=== PATIENT | female | born 1945 | race Caucasian/White ===

== ENCOUNTER 2016-06-12 16:32 | Observation (INO) | payer MEDICARE, OTHER ==
[2016-06-12] MEDS ORDERED: ASPIRIN 81 MG TABLET, CHEWABLE PO ONE (17:10)
--- NOTE | 2016-06-12 17:10 | ER Document Report ---
ED Medical Screen (RME) - General Stated Complaint: INDIGESTION/JAW PAIN Time seen by provider: 17:07 Mode of Arrival: Ambulatory Notes: 70-year-old female presents to ED for pain in the chest "indigestion" and then pain went up to the right side of her jaw. Denies any shortness of breath. States she's been very jittery. States she has a history of high blood pressure but no elevated cholesterol. No history of mother father brother sister having heart attacks. I have greeted and performed a rapid initial assessment of this patient. A comprehensive ED assessment and evaluation of the patient, analysis of test results and completion of medical decision making process will be conducted by an additional ED providers. TRAVEL OUTSIDE OF THE [place] IN LAST 30 DAYS: No - Related Data Allergies/Adverse Reactions: No Known Allergies Allergy (Verified 06/12/16 17:07) Physical Exam - Vital signs Vitals: Temp Pulse Resp BP Pulse Ox 98.1 F 65 16 155/61 H 97 06/12/16 16:55 06/12/16 16:55 06/12/16 16:55 06/12/16 16:55 06/12/16 16:55 Course - Vital Signs Vital signs: Temp Pulse Resp BP Pulse Ox 98.1 F 65 16 155/61 H 97 06/12/16 16:55 06/12/16 16:55 06/12/16 16:55 06/12/16 16:55 06/12/16 16:55
[2016-06-12 17:35] LABS: ABSOLUTE EOSINOPHILS # (AUTO) 0.1 10^3/uL (0.0-0.6); ABSOLUTE LYMPHOCYTES (AUTO) 0.9 10^3/uL (0.5-4.7); ABSOLUTE MONOCYTES (AUTO) 0.4 10^3/uL (0.1-1.4); ABSOLUTE NEUT (AUTO) 4.2 10^3/uL (1.7-8.2); BASOPHILS % (AUTO) 0.8 % (0-2); HEMOGLOBIN 13.7 g/dL (12.0-15.5); HGB HCT DIFFERENCE 0.1; LYMPHOCYTES % (AUTO) 16.4 % (13-45); MEAN CORPUSCULAR HEMOGLOBIN 30.2 pg (27.0-33.4); MEAN CORPUSCULAR HGB CONC 33.4 g/dL (32.0-36.0); MEAN CORPUSCULAR VOLUME 90 fl (80-97); MONOCYTES % (AUTO) 7.5 % (3-13); RED BLOOD COUNT 4.54 10^6/uL (3.72-5.28); RED CELL DISTRIBUTION WIDTH 13.3 % (11.5-14.0); SEGMENTED NEUTROPHILS % (AUTO) 74.3 % (42-78); WHITE BLOOD COUNT 5.6 10^3/uL (4.0-10.5)
[2016-06-12 17:49] LABS: ALANINE AMINOTRANSFERASE 24 U/L (9-52); ALBUMIN 4.1 g/dL (3.5-5.0); ALKALINE PHOSPHATASE 69 U/L (38-126); ANION GAP 9 (5-19); ASPARTATE AMINO TRANSFERASE 21 U/L (14-36); BILIRUBIN,TOTAL 0.6 mg/dL (0.2-1.3); BLOOD UREA NITROGEN 23 mg/dL (7-20); CALCIUM 9.9 mg/dL (8.4-10.2); CARBON DIOXIDE 28 mmol/L (22-30); CHLORIDE 105 mmol/L (98-107); CREATINE KINASE 38 U/L (30-135); CREATININE RESULT 0.62 mg/dL (0.52-1.25); GLUCOSE 95 mg/dL (75-110); POTASSIUM 4.2 mmol/L (3.6-5.0); SODIUM 142.1 mmol/L (137-145); TOTAL PROTEIN 7.2 g/dL (6.3-8.2)
[2016-06-12 18:01] LABS: CREATINE KINASE MB 0.39 ng/mL (<4.55)
[2016-06-12 18:02] LABS: TROPONIN I < 0.012 ng/mL
--- NOTE | 2016-06-12 18:24 | ER Document Report ---
ED Cardiac - General Chief Complaint: Chest Pressure Stated Complaint: INDIGESTION/JAW PAIN Time seen by provider: 18:24 Mode of Arrival: Ambulatory Notes: This is a pleasant 70-year-old female that presented to the emergency room after an episode of retrosternal chest discomfort radiating into the right jaw today. She states she was coming out of [place] from shopping when this occurred. She stated that the discomfort lasted approximately 30 minutes and resolved spontaneously. She denies any shortness of breath or diaphoresis at the time. She denies any history of reflux. She reports that she recently had an elevated blood pressure at her doctor's office. TRAVEL OUTSIDE OF THE [place] IN LAST 30 DAYS: No - HPI Patient complains to provider of: Chest pain Use of: denies: Alcohol, Amphetamines, Bath salts, Caffeine, Cocaine, Decongestants, Other Was the onset of pain: Sudden Is the pain a: New problem Chest pain location: Substernal Quality of pain: Dull Chest pain radiation location: Right jaw Severity now: None Severity at worst: Moderate Pain level currently: Denies Chest pain precipitating factors: Physical Exertion Cardiac risk factors: Hypertension Positive cardiac history: No Associated symptoms: denies: Diaphoresis, Shortness of breath Exacerbated by: Denies Relieved by: Nothing Similar symptoms previously: No Recently seen / treated by doctor: No - Related Data Allergies/Adverse Reactions: No Known Allergies Allergy (Verified 06/12/16 17:07) Home Medications: Current Home Medications Cetirizine HCl [Cetirizine HCl] 10 mg PO DAILYP PRN 06/12/16 [History] Cholecalciferol (Vitamin D3) [Vitamin D3] 1,000 unit PO DAILY 06/12/16 [History] Cyanocobalamin (Vitamin B-12) [Vitamin B-12] 1,000 mcg PO DAILY 06/12/16 [ History] Meloxicam [Meloxicam] 7.5 mg PO BID 06/12/16 [History] Tolterodine Tartrate [Detrol LA] 4 mg PO DAILY 06/12/16 [History] Past Medical History - General Information source: Patient - Social History Smoking Status: Never Smoker Cigarette use (# per day): No Chew tobacco use (# tins/day): No Frequency of alcohol use: None Drug Abuse: None Lives with: Family Family History: Reviewed & Not Pertinent Patient has suicidal ideation: No Patient has homicidal ideation: No - Medical History Medical History: Negative Renal/ Medical History: Denies: Hx Peritoneal Dialysis Surgical Hx: Negative Review of Systems - Review of Systems Constitutional: denies: Chills, Fever EENT: No symptoms reported Cardiovascular: No symptoms reported Respiratory: No symptoms reported Gastrointestinal: No symptoms reported Genitourinary: No symptoms reported Female Genitourinary: No symptoms reported Musculoskeletal: No symptoms reported Skin: No symptoms reported Hematologic/Lymphatic: No symptoms reported Neurological/Psychological: No symptoms reported Physical Exam - Vital signs Vitals: Temp Pulse Resp BP Pulse Ox 98.1 F 65 16 155/61 H 97 06/12/16 16:55 06/12/16 16:55 06/12/16 16:55 06/12/16 16:55 06/12/16 16:55 Notes: Physical exam: GENERAL: 70-year-old female, alert and oriented 3, no acute distress HEAD: Atraumatic, normocephalic. EYES: Pupils equal round and reactive to light, extraocular movements intact, sclera anicteric, conjunctiva are normal. ENT: TMs normal, nares patent, oropharynx clear without exudates. Moist mucous membranes. NECK: Normal range of motion, supple without lymphadenopathy or JVD. LUNGS: Breath sounds clear to auscultation bilaterally and equal. No wheezes rales or rhonchi. HEART: Regular rate and rhythm without murmurs, rubs or gallops. ABDOMEN: Soft, normoactive bowel sounds. No tenderness to palpation. No guarding, no rebound. No masses appreciated. EXTREMITIES: Normal range of motion, no pitting or edema. No clubbing or cyanosis. NEUROLOGICAL: Cranial nerves II through XII grossly intact. Normal speech, normal gait. PSYCH: Normal mood, normal affect. SKIN: Warm, Dry, normal turgor, no rashes or lesions noted. Course - Vital Signs Vital signs: Temp Pulse Resp BP Pulse Ox 98.1 F 65 20 149/109 H 100 06/12/16 16:55 06/12/16 16:55 06/12/16 21:00 06/12/16 20:01 06/12/16 21:00 - Laboratory Result Diagrams: 06/12/16 17:20 06/12/16 17:20 Laboratory results interpreted by me: 06/12/16 17:20 BUN 23 H - Diagnostic Test Radiology reviewed: Image reviewed, Reports reviewed - Wrist x-ray shows no infiltrates or effusions - EKG Interpretation by Me Rate: Normal Rhythm: NSR - EKG shows normal sinus rhythm with a left axis deviation, poor R- wave progression Discharge - Discharge Clinical Impression: chest pain Condition: Stable Disposition: HOME, SELF-CARE Admitting Provider: Hospitalist - Dr. Esquivel Unit Admitted: Telemetry
--- NOTE | 2016-06-12 18:55 | PDOC H&P ---
History of Present Illness Admission Date/PCP: 06/12/16 18:40 CARL MIN Patient complains of: chest pain History of Present Illness: AYLA RODRIGUEZ is a 70 year old female that presented to the emergency room after an episode of retrosternal chest discomfort radiating into the right jaw today. She states she was coming out of [place] [employer] from shopping when this occurred. She stated that the discomfort lasted approximately 30 minutes and resolved spontaneously. She denies any shortness of breath or diaphoresis at the time. She denies any history of reflux. She reports that she recently had an elevated blood pressure at her doctor's office. The ED patient had a normal EKG, negative cardiac enzymes She remained totally asymptomatic She was subsequently admitted for observation to telemetry unit under hospitalist service Past Medical History Medical History: None Cardiac Medical History: Reports: None Musculoskeltal Medical History: Reports: None Psychiatric Medical History: Reports: None Hematology: Reports: None Past Surgical History Past Surgical History: Reports: None Social History Smoking Status: Never Smoker Frequency of Alcohol Use: None Hx Recreational Drug Use: No - Advance Directive Resuscitation Status: Full Code Surrogate healthcare decision maker:: her Keshav Family History Parental Family History Reviewed: Yes - grandfather of an OK at age 70 Children Family History Reviewed: Yes Sibling(s) Family History Reviewed.: Yes Medication/Allergy Home Medications: Cetirizine HCl [Cetirizine HCl] 10 mg PO DAILYP PRN 06/12/16 Cholecalciferol (Vitamin D3) [Vitamin D3] 1,000 unit PO DAILY 06/12/16 Cyanocobalamin (Vitamin B-12) [Vitamin B-12] 1,000 mcg PO DAILY 06/12/16 Meloxicam [Meloxicam] 7.5 mg PO BID 06/12/16 Tolterodine Tartrate [Detrol LA] 4 mg PO DAILY 06/12/16 Allergies/Adverse Reactions: No Known Allergies Allergy (Verified 06/12/16 17:07) Review of Systems Constitutional: ABSENT: chills, fever(s), headache(s), weight gain, weight loss Eyes: ABSENT: visual disturbances Ears: ABSENT: hearing changes Cardiovascular: PRESENT: as per HPI Respiratory: ABSENT: cough, hemoptysis Gastrointestinal: ABSENT: abdominal pain, constipation, diarrhea, hematemesis, hematochezia, nausea, vomiting Genitourinary: ABSENT: dysuria, hematuria Musculoskeletal: ABSENT: joint swelling Integumentary: ABSENT: rash, wounds Neurological: ABSENT: abnormal gait, abnormal speech, confusion, dizziness, focal weakness, syncope Psychiatric: ABSENT: anxiety, depression, homidical ideation, suicidal ideation Endocrine: ABSENT: cold intolerance, heat intolerance, polydipsia, polyuria Hematologic/Lymphatic: ABSENT: easy bleeding, easy bruising Physical Exam Vital Signs: Temp Pulse Resp BP Pulse Ox 98.1 F 65 16 155/61 H 97 06/12/16 16:55 06/12/16 16:55 06/12/16 16:55 06/12/16 16:55 06/12/16 16:55 General appearance: PRESENT: no acute distress, well-developed, well-nourished Head exam: PRESENT: atraumatic, normocephalic Eye exam: PRESENT: conjunctiva pink, EOMI, PERRLA. ABSENT: scleral icterus Ear exam: PRESENT: normal external ear exam Mouth exam: PRESENT: moist, tongue midline Neck exam: ABSENT: carotid bruit, JVD, lymphadenopathy, thyromegaly Respiratory exam: PRESENT: clear to auscultation aisha. ABSENT: rales, rhonchi, wheezes Cardiovascular exam: PRESENT: RRR. ABSENT: diastolic murmur, rubs, systolic murmur Pulses: PRESENT: normal dorsalis pedis pul Vascular exam: PRESENT: normal capillary refill GI/Abdominal exam: PRESENT: normal bowel sounds, soft. ABSENT: distended, guarding, mass, organolmegaly, rebound, tenderness Rectal exam: PRESENT: deferred Extremities exam: PRESENT: full ROM. ABSENT: calf tenderness, clubbing, pedal edema Neurological exam: PRESENT: alert, awake, oriented to person, oriented to place , oriented to time, oriented to situation, CN II-XII grossly intact. ABSENT: motor sensory deficit Psychiatric exam: PRESENT: appropriate affect, normal mood. ABSENT: homicidal ideation, suicidal ideation Skin exam: PRESENT: dry, intact, warm. ABSENT: cyanosis, rash Results Laboratory Results: Laboratory WBC 5.6 10^3/uL (4.0-10.5) 06/12/16 17:20 RBC 4.54 10^6/uL (3.72-5.28) 06/12/16 17:20 Hgb 13.7 g/dL (12.0-15.5) 06/12/16 17:20 Hct 41.0 % (36.0-47.0) 06/12/16 17:20 MCV 90 fl (80-97) 06/12/16 17:20 MCH 30.2 pg (27.0-33.4) 06/12/16 17:20 MCHC 33.4 g/dL (32.0-36.0) 06/12/16 17:20 RDW 13.3 % (11.5-14.0) 06/12/16 17:20 Plt Count 210 10^3/uL (150-450) 06/12/16 17:20 Seg Neutrophils % 74.3 % (42-78) 06/12/16 17:20 Lymphocytes % 16.4 % (13-45) 06/12/16 17:20 Monocytes % 7.5 % (3-13) 06/12/16 17:20 Eosinophils % 1.0 % (0-6) 06/12/16 17:20 Basophils % 0.8 % (0-2) 06/12/16 17:20 Absolute Neutrophils 4.2 10^3/uL (1.7-8.2) 06/12/16 17:20 Absolute Lymphocytes 0.9 10^3/uL (0.5-4.7) 06/12/16 17:20 Absolute Monocytes 0.4 10^3/uL (0.1-1.4) 06/12/16 17:20 Absolute Eosinophils 0.1 10^3/uL (0.0-0.6) 06/12/16 17:20 Absolute Basophils 0.0 10^3/uL (0.0-0.2) 06/12/16 17:20 Sodium 142.1 mmol/L (137-145) 06/12/16 17:20 Potassium 4.2 mmol/L (3.6-5.0) 06/12/16 17:20 Chloride 105 mmol/L (98-107) 06/12/16 17:20 Carbon Dioxide 28 mmol/L (22-30) 06/12/16 17:20 Anion Gap 9 (5-19) 06/12/16 17:20 BUN 23 mg/dL (7-20) H 06/12/16 17:20 Creatinine 0.62 mg/dL (0.52-1.25) 06/12/16 17:20 Est GFR ( Amer) > 60 (>60) 06/12/16 17:20 Est GFR (Non-Af Amer) > 60 (>60) 06/12/16 17:20 Glucose 95 mg/dL (75-110) 06/12/16 17:20 Calcium 9.9 mg/dL (8.4-10.2) 06/12/16 17:20 Magnesium 2.0 mg/dL (1.6-2.3) 06/12/16 17:20 Total Bilirubin 0.6 mg/dL (0.2-1.3) 06/12/16 17:20 Direct Bilirubin 0.0 mg/dL (0.0-0.3) 06/12/16 17:20 AST 21 U/L (14-36) 06/12/16 17:20 ALT 24 U/L (9-52) 06/12/16 17:20 Alkaline Phosphatase 69 U/L (38-126) 06/12/16 17:20 Creatine Kinase 38 U/L (30-135) 06/12/16 17:20 CK-MB (CK-2) 0.39 ng/mL (<4.55) 06/12/16 17:20 Troponin I < 0.012 ng/mL 06/12/16 17:20 Total Protein 7.2 g/dL (6.3-8.2) 06/12/16 17:20 Albumin 4.1 g/dL (3.5-5.0) 06/12/16 17:20 Impressions: Chest X-Ray 06/12/16 17:11 IMPRESSION: NO SIGNIFICANT RADIOGRAPHIC FINDING IN THE CHEST. Assessment & Plan - Diagnosis (1) Chest pain Qualifiers: Chest pain type: unspecified Qualified Code(s): R07.9 - Chest pain, unspecified Is this a current diagnosis for this admission?: YesPlan: Patient has no significant risk factors except for the fact that she is post menopausal She is nonsmoker But she gives a fairly good history of chest pressure radiating to the neck that lasted about half an hour We will admit her to telemetry unit, monitor overnight, obtain serial EKGs and troponins ; if patient rules out in a.m. she will be referred to cardiology as an outpatient for stress testing Patient will be treated with Ecotrin 325 mg daily; Lipitor 80 mg at bedtime DVT and GI prophylaxis were ordered
[2016-06-12] MEDS ORDERED: LANSOPRAZOLE 30 MG TAB.RAP.DR PO ONE (19:15)
[2016-06-12] MEDS ORDERED: ENOXAPARIN SODIUM INJ 40 MG/0.4 ML DISP.SYRIN SUBCUT ONE (19:30)
[2016-06-12] MEDS ORDERED: ATORVASTATIN CALCIUM 80 MG TABLET PO SCH (22:00)
--- NOTE | 2016-06-13 00:05 | EKG REPORT ---
SEVERITY:- NORMAL ECG - SINUS RHYTHM : Confirmed by: Ford Vines 13-Jun-2016 00:04:11
[2016-06-13 05:39] LABS: CHOLESTEROL 164.59 mg/dL (0-200); Direct HDL 61 mg/dL (>40); TRIGLYCERIDES 98 mg/dL (<150)
[2016-06-13 05:50] LABS: DIRECT LDL 86 mg/dL (<100)
[2016-06-13] MEDS ORDERED: LANSOPRAZOLE 30 MG TAB.RAP.DR PO SCH (06:00)
[2016-06-13] MEDS ORDERED: ENOXAPARIN SODIUM INJ 40 MG/0.4 ML DISP.SYRIN SUBCUT SCH (08:00)
[2016-06-13 08:35] VITALS: BP 121/49
[2016-06-13] MEDS ORDERED: ASPIRIN 325 MG TABLET, ENT COATED PO SCH (10:00)
--- NOTE | 2016-06-13 10:29 | EKG REPORT ---
SEVERITY:- NORMAL ECG - SINUS RHYTHM : Confirmed by: Ford Vines 13-Jun-2016 10:28:06
--- NOTE | 2016-06-13 13:59 | PDOC DISCHARGE SUMMARY ---
General - Admit/Disc Date/PCP Admission Date/Primary Care Provider: 06/12/16 18:41 CARL MIN Discharge Date: 06/13/16 - Discharge Diagnosis (1) Chest pain Is this a current diagnosis for this admission?: Yes - Additional Information Resuscitation Status: Full Code Discharge Diet: As Tolerated Discharge Activity: Activity As Tolerated Home Medications: Cetirizine HCl [Cetirizine HCl] 10 mg PO DAILYP PRN 06/12/16 Cholecalciferol (Vitamin D3) [Vitamin D3] 1,000 unit PO DAILY 06/12/16 Cyanocobalamin (Vitamin B-12) [Vitamin B-12] 1,000 mcg PO DAILY 06/12/16 Meloxicam [Meloxicam] 7.5 mg PO BID 06/12/16 Tolterodine Tartrate [Detrol LA] 4 mg PO DAILY 06/12/16 History of Present Illness Patient complains of: ches pain History of Present Illness: presented to the emergency room after an episode of retrosternal chest discomfort radiating into the right jaw today. She states she was coming out of [place] from [place] when this occurred. She stated that the discomfort lasted approximately 30 minutes and resolved spontaneously. She denies any shortness of breath or diaphoresis at the time. She denies any history of reflux. She reports that she recently had an elevated blood pressure at her doctor's office. The ED patient had a normal EKG, negative cardiac enzymes She remained totally asymptomatic She was subsequently admitted for observation to telemetry unit under hospitalist service Hospital Course Hospital Course: Patient was monitered ; she did not have any arrhythmias Chest pain did not reccur The troponins remained negative and less than 0.012 serial EKG's were normal lipid profile was normal TSH was normal high and should be repeated in 1 month 06/12/16 06/13/16 06/13/16 17:20 00:26 04:41 Troponin I < 0.012 < 0.012 Triglycerides 98 Cholesterol 164.59 LDL Cholesterol Direct 86 VLDL Cholesterol 20.0 HDL Cholesterol 61 TSH 06/13/16 06/13/16 04:41 04:41 Troponin I < 0.012 Triglycerides Cholesterol LDL Cholesterol Direct VLDL Cholesterol HDL Cholesterol TSH 5.32 H Physical Exam Vital Signs: Temp Pulse Resp BP Pulse Ox 98.0 F 60 18 121/49 L 100 06/13/16 10:17 06/13/16 10:17 06/13/16 10:17 06/13/16 08:06 06/13/16 10:17 Intake & Output 06/12/16 06/13/16 06/14/16 00:59 00:59 00:59 Intake Total 420 255 Output Total 100 Balance 420 155 Weight 60.2 kg General appearance: PRESENT: no acute distress, well-developed, well-nourished Head exam: PRESENT: atraumatic, normocephalic Eye exam: PRESENT: conjunctiva pink, EOMI, PERRLA. ABSENT: scleral icterus Ear exam: PRESENT: normal external ear exam Mouth exam: PRESENT: moist, tongue midline Neck exam: ABSENT: carotid bruit, JVD, lymphadenopathy, thyromegaly Respiratory exam: PRESENT: clear to auscultation aisha. ABSENT: rales, rhonchi, wheezes Cardiovascular exam: PRESENT: RRR. ABSENT: diastolic murmur, rubs, systolic murmur Pulses: PRESENT: normal dorsalis pedis pul Vascular exam: PRESENT: normal capillary refill GI/Abdominal exam: PRESENT: normal bowel sounds, soft. ABSENT: distended, guarding, mass, organolmegaly, rebound, tenderness Rectal exam: PRESENT: deferred Extremities exam: PRESENT: full ROM. ABSENT: calf tenderness, clubbing, pedal edema Neurological exam: PRESENT: alert, awake, oriented to person, oriented to place , oriented to time, oriented to situation, CN II-XII grossly intact. ABSENT: motor sensory deficit Psychiatric exam: PRESENT: appropriate affect, normal mood. ABSENT: homicidal ideation, suicidal ideation Skin exam: PRESENT: dry, intact, warm. ABSENT: cyanosis, rash Results Laboratory Results: 06/13/16 06/13/16 04:41 04:41 Triglycerides 98 Cholesterol 164.59 LDL Cholesterol Direct 86 VLDL Cholesterol 20.0 HDL Cholesterol 61 TSH 5.32 H 06/13/16 06/13/16 00:26 04:41 Troponin I < 0.012 < 0.012 06/12/16 17:20 06/12/16 17:20 06/12/16 06/12/16 06/13/16 17:20 17:20 04:41 WBC 5.6 RBC 4.54 Hgb 13.7 Hct 41.0 MCV 90 MCH 30.2 MCHC 33.4 RDW 13.3 Plt Count 210 Seg Neutrophils % 74.3 Lymphocytes % 16.4 Monocytes % 7.5 Eosinophils % 1.0 Basophils % 0.8 Absolute Neutrophils 4.2 Absolute Lymphocytes 0.9 Absolute Monocytes 0.4 Absolute Eosinophils 0.1 Absolute Basophils 0.0 Sodium 142.1 Potassium 4.2 Chloride 105 Carbon Dioxide 28 Anion Gap 9 BUN 23 H Creatinine 0.62 Est GFR ( Amer) > 60 Est GFR (Non-Af Amer) > 60 Glucose 95 Calcium 9.9 Magnesium 2.0 Total Bilirubin 0.6 AST 21 ALT 24 Alkaline Phosphatase 69 Total Protein 7.2 Albumin 4.1 Triglycerides 98 Cholesterol 164.59 LDL Cholesterol Direct 86 VLDL Cholesterol 20.0 HDL Cholesterol 61 TSH 06/13/16 04:41 WBC RBC Hgb Hct MCV MCH MCHC RDW Plt Count Seg Neutrophils % Lymphocytes % Monocytes % Eosinophils % Basophils % Absolute Neutrophils Absolute Lymphocytes Absolute Monocytes Absolute Eosinophils Absolute Basophils Sodium Potassium Chloride Carbon Dioxide Anion Gap BUN Creatinine Est GFR ( Amer) Est GFR (Non-Af Amer) Glucose Calcium Magnesium Total Bilirubin AST ALT Alkaline Phosphatase Total Protein Albumin Triglycerides Cholesterol LDL Cholesterol Direct VLDL Cholesterol HDL Cholesterol TSH 5.32 H 06/12/16 06/12/16 06/13/16 17:20 17:20 00:26 Creatine Kinase 38 CK-MB (CK-2) 0.39 Troponin I < 0.012 < 0.012 06/13/16 04:41 Creatine Kinase CK-MB (CK-2) Troponin I < 0.012 Impressions: Chest X-Ray 06/12/16 17:11 IMPRESSION: NO SIGNIFICANT RADIOGRAPHIC FINDING IN THE CHEST. Plan Discharge Plan: patient was discharged -referred to primary care physician and cooling pipe inspector A stress test was advised in 2-4 weeks Time Spent: Less than 30 Minutes
== END 2016-06-13 10:56 | disposition home or self-care (01) ==
LOC: ER 16:32 → UNDOADMOB 18:40 → EH 18:40 → 4N 21:30
PROVIDERS: ADMIT Emergency Medicine; ATTEND Emergency Medicine
PROC: 3E023GC Introduction of Other Therapeutic Substance into Muscle, Percutaneous Approach (ICD-10-PCS; principal; 2016-06-12)
DX: R07.9 Chest pain, unspecified (principal); I10 Essential (primary) hypertension
CPT/HCPCS: 93005 ×2; 99285; 96372; 36415 ×2; 82553; 82550; 83735; 84443; 85025; 80053; 84484 ×2; 83036; 80061; 71020; 93010 ×2; G0378 ×3; A9270 ×3; J1650

== ENCOUNTER → 2016-10-23 | Outpatient (CLI) | payer MEDICARE, OTHER ==
--- NOTE | 2016-10-23 14:07 | WOMENS IMAGING REPORT ---
EXAM DESCRIPTION: 3D SCREENING MAMMO BILAT COMPLETED DATE/TIME: 10/23/2016 11:41 am REASON FOR STUDY: ROUTINE 3D Z12.31 Z12.31 ENCNTR SCREEN MAMMOGRAM FOR MALIGNANT NEOPLASM OF GALA COMPARISON: Multiple since 2012 TECHNIQUE: Standard craniocaudal and mediolateral oblique views of each breast recorded using digita l acquisition and breast tomosynthesis. LIMITATIONS: None. FINDINGS: Findings present which are benign by mammographic criteria. No suspicious masses, calcifi cations or architectural distortion. Pertinent benign findings: Bilateral benign calcifications Read with the assistance of CAD. .[facility] - R2 Cenova Version 1.3 .[facility] - R2 Cenova Version 1.3 .[facility] - R2 Cenova Version 2.4 .[facility] - R2 Cenova Version 2.4 .[facility] - R2 Photographic Equipment [employer]sembler Version 9.2 Benign mammographic findings may include one or more of the following: Smooth masses, popcorn/rim/co arse calcifications, asymmetries, post-procedure changes, and lesions with long-standing stability. IMPRESSION: BENIGN MAMMOGRAPHIC FINDINGS. BIRADS 2 BREAST DENSITY: c. The breasts are heterogeneously dense, which may obscure small masses. BIRAD: 2 BENIGN FINDING(S) RECOMMENDATION: RECOMMENDATION: ROUTINE SCREENING Please continue bilateral screening tomosynthesis in September 2017 COMMENT: The patient has been notified of the results by letter per SA requirements. Additional no tification policies are in place for contacting patient with suspicious or incomplete findings. Quality ID #[id number]: The [employer] recommends an annual screening mammogram for women aged 40 years or over. This facility utilizes a reminder system to ensure that all patients receive reminder letters, and/or direct phone calls for appointments. This includes reminders for routine scr eening mammograms, diagnostic mammograms, or other Breast Imaging Interventions when appropriate. Th is patient will be placed in the appropriate reminder system. The [employer] (ACR) has developed recommendations for screening MRI of the breast s in certain patient populations, to be used in conjunction with mammography. Breast MRI surveillanc e may be appropriate for women with more than 20% lifetime risk of developing breast cancer as deter mined by genetic testing, significant family history of the disease, or history of mantle radiation f or Hodgkins Disease. ACR Practice Guidelines 2008. DBT Technology DBT is a type of tomographic mammography. With conventional mammography, overlapping breast tissue ma y make lesions difficult to detect, even with good compression. DBT uses an x-ray tube that rotates a round the breast, taking images at different angles. These images are then combined to create thin sl ices of the breast that the radiologist can view as a 3D reconstruction. The [email or web address] unit can perform full-field digital mammograms (2D imaging); or DBT (3D imaging); or both, in a combination mode that quickly performs both the mammogram and the tomosynthesis scan while the breast is still compressed. PQRS 6045F: Fluoroscopic imaging is not utilized for breast tomosynthesis. TECHNICAL DOCUMENTATION: FINDING NUMBER: (1) ASSESSMENT: (1) JOB ID: [id number] Where- All Rights Reserved
== END ==
LOC: WI 11:03
PROVIDERS: ATTEND Nurse Practitioner
DX: Z12.31 Encounter for screening mammogram for malignant neoplasm of breast (principal)
CPT/HCPCS: 77063; G0202; 77067

== ENCOUNTER 2017-09-01 07:16 | Emergency (ER) | payer MEDICARE, OTHER ==
[2017-09-01] MEDS ORDERED: ASPIRIN 81 MG TABLET, CHEWABLE PO ONE (07:44)
--- NOTE | 2017-09-01 08:08 | RADIOLOGY REPORT (SQ) ---
EXAM DESCRIPTION: CHEST SINGLE VIEW COMPLETED DATE/TIME: 09/01/2017 8:00 am REASON FOR STUDY: bed 12 cp COMPARISON: 06/12/2016 EXAM PARAMETERS: NUMBER OF VIEWS: One view. TECHNIQUE: Single frontal radiographic view of the chest acquired. RADIATION DOSE: NA LIMITATIONS: None. FINDINGS: LUNGS AND PLEURA: No opacities, masses or pneumothorax. No pleural effusion. MEDIASTINUM AND HILAR STRUCTURES: No masses. Contour normal. HEART AND VASCULAR STRUCTURES: Heart stable in size. Normal vasculature. BONES: No acute findings. HARDWARE: None in the chest. OTHER: No other significant finding. IMPRESSION: NO ACUTE RADIOGRAPHIC FINDING IN THE CHEST. TECHNICAL DOCUMENTATION: JOB ID: [id number] [employer]- All Rights Reserved Reading location - IP/workstation name: [email or web address]
[2017-09-01 08:15] LABS: ABSOLUTE MONOCYTES (AUTO) 0.3 10^3/uL (0.1-1.4); ABSOLUTE NEUT (AUTO) 1.8 10^3/uL (1.7-8.2); BASOPHILS % (AUTO) 0.9 % (0-2); HEMATOCRIT 41.6 % (36.0-47.0); HEMOGLOBIN 14.1 g/dL (12.0-15.5); LYMPHOCYTES % (AUTO) 30.6 % (13-45); MEAN CORPUSCULAR HEMOGLOBIN 30.9 pg (27.0-33.4); MEAN CORPUSCULAR HGB CONC 33.9 g/dL (32.0-36.0); MEAN CORPUSCULAR VOLUME 91 fl (80-97); MONOCYTES % (AUTO) 9.9 % (3-13); PLATELET COUNT 215 10^3/uL (150-450); RED BLOOD COUNT 4.56 10^6/uL (3.72-5.28); RED CELL DISTRIBUTION WIDTH 13.5 % (11.5-14.0); SEGMENTED NEUTROPHILS % (AUTO) 57.6 % (42-78); TOTAL CELLS COUNTED % (AUTO) 100 %; WHITE BLOOD COUNT 3.2 10^3/uL (4.0-10.5)
[2017-09-01 08:24] LABS: ALANINE AMINOTRANSFERASE 25 U/L (9-52); ALBUMIN 4.3 g/dL (3.5-5.0); ALKALINE PHOSPHATASE 55 U/L (38-126); ANION GAP 11 (5-19); ASPARTATE AMINO TRANSFERASE 23 U/L (14-36); BILIRUBIN,DIRECT 0.3 mg/dL (0.0-0.4); BILIRUBIN,TOTAL 0.6 mg/dL (0.2-1.3); BLOOD UREA NITROGEN 18 mg/dL (7-20); CALCIUM 9.7 mg/dL (8.4-10.2); CARBON DIOXIDE 27 mmol/L (22-30); CHLORIDE 109 mmol/L (98-107); CREATINE KINASE 32 U/L (30-135); GLUCOSE 96 mg/dL (75-110); POTASSIUM 4.3 mmol/L (3.6-5.0); TOTAL PROTEIN 7.2 g/dL (6.3-8.2)
[2017-09-01 08:37] LABS: CREATINE KINASE MB 0.35 ng/mL (<4.55)
[2017-09-01 08:38] LABS: TROPONIN I < 0.012 ng/mL
[2017-09-01] MEDS ORDERED: NORMAL SALINE 1000 ML 1,000 ML IV ONE (08:56)
[2017-09-01] MEDS ORDERED: LIDOCAINE 5% (700 MG) TRANSDERMAL ADH..PATCH TP ONE (09:38)
--- NOTE | 2017-09-01 10:06 | ER Document Report ---
ED General - General Chief Complaint: Chest Pain Stated Complaint: CHEST PAIN Time Seen by Provider: 09/01/17 07:51 TRAVEL OUTSIDE OF THE [place] IN LAST 30 DAYS: No - HPI Patient complains to provider of: Chest pain Notes: Patient coming in with a "twinge" of chest pain pressure on left-sided chest starting last night intermittent and ongoing. Patient currently resting states she is not having any chest pain. Denies any chest wall trauma. Patient denies any exacerbating or relieving factors. Patient denies any recent travel denies shortness of breath denies fevers chills nausea vomiting diarrhea abdominal pain. Patient denies any radiation of the pain. Patient states mostly felt like a muscle cramp within her chest. Patient states negative stress test in 2016 time. - Related Data Allergies/Adverse Reactions: No Known Allergies Allergy (Verified 06/12/16 17:07) Past Medical History - Social History Smoking Status: Never Smoker Chew tobacco use (# tins/day): No Frequency of alcohol use: None Drug Abuse: None Family History: Reviewed & Not Pertinent Patient has suicidal ideation: No Patient has homicidal ideation: No - Past Medical History Cardiac Medical History: Reports: Hx Hypertension Renal/ Medical History: Denies: Hx Peritoneal Dialysis Past Surgical History: Reports: Hx Cholecystectomy Review of Systems - Review of Systems Constitutional: No symptoms reported EENT: No symptoms reported Cardiovascular: No symptoms reported, Chest pain Respiratory: No symptoms reported Gastrointestinal: No symptoms reported Genitourinary: No symptoms reported Female Genitourinary: No symptoms reported Musculoskeletal: No symptoms reported Skin: No symptoms reported Hematologic/Lymphatic: No symptoms reported Neurological/Psychological: No symptoms reported -: Yes All other systems reviewed and negative Physical Exam - Vital signs Vitals: Temp Pulse Resp BP Pulse Ox 98.3 F 62 16 146/56 H 96 09/01/17 07:25 09/01/17 07:25 09/01/17 07:25 09/01/17 07:25 09/01/17 07:25 Interpretation: Normal - General General appearance: Appears well, Alert - HEENT Head: Normocephalic, Atraumatic Eyes: Normal Pupils: PERRL - Respiratory Respiratory status: No respiratory distress Chest status: Nontender Breath sounds: Normal Chest palpation: Normal Notes: Examination of the chest wall does not reveal any signs or rashes shingles are other concerning pathology no deformities. - Cardiovascular Rhythm: Regular Heart sounds: Normal auscultation Murmur: No - Abdominal Inspection: Normal Distension: No distension Bowel sounds: Normal Tenderness: Nontender Organomegaly: No organomegaly - Back Back: Normal, Nontender - Extremities General upper extremity: Normal inspection, Nontender, Normal color, Normal ROM , Normal temperature General lower extremity: Normal inspection, Nontender, Normal color, Normal ROM , Normal temperature, Normal weight bearing. No: Fatou's sign - Neurological Neuro grossly intact: Yes Cognition: Normal Orientation: AAOx4 [place] Coma Scale Eye Opening: Spontaneous [place] Coma Scale Verbal: Oriented [place] Coma Scale Motor: Obeys Commands [place] Coma Scale Total: 15 Speech: Normal Motor strength normal: LUE, RUE, LLE, RLE Sensory: Normal - Psychological Associated symptoms: Normal affect, Normal mood - Skin Skin Temperature: Warm Skin Moisture: Dry Skin Color: Normal Course - Re-evaluation Re-evalutation: 09/01/17 15:28 The patient has atypical chest pain as the patient's chest pain is not suggestive of pulmonary embolus, cardiac ischemia, aortic dissection, or other serious etiology. Given the extremely low risk of these diagnoses further testing and evaluation for these possibilities does not appear to be indicated at this time. The patient has been instructed to return if the symptoms worsen or change in any way. Slight signs of dehydration with hypernatremia. EKG unremarkable troponin negative chest x-ray negative. Patient remained asymptomatic here in the ER. - Vital Signs Vital signs: Temp Pulse Resp BP Pulse Ox 98.3 F 62 14 128/63 H 98 09/01/17 07:25 09/01/17 07:25 09/01/17 10:01 09/01/17 10:01 09/01/17 10:01 - Laboratory Result Diagrams: 09/01/17 07:54 09/01/17 07:54 Laboratory results interpreted by me: 09/01/17 09/01/17 07:54 07:54 WBC 3.2 L Sodium 147.0 H Chloride 109 H Discharge - Discharge Clinical Impression: Chest wall pain Condition: Good Disposition: HOME, SELF-CARE Instructions: Chest Wall Pain ([facility]), Chest Pain of Unclear Cause ([facility]) Additional Instructions: Your laboratory studies today did not show any signs of cardiac ischemia cardiac damage or signs of a heart attack. Received laboratory studies are also negative for any acute pathology. Do believe your chest pain is due to muscle skeletal reason. Please continue your home medications. Would recommend taking Tylenol for pain control. The patient gave you here in ER should help dull the pain. Return to the ER for any concerning issues follow- up with your primary care physician in 3-5 days. Lidocaine patch that we gave you here in ER is also available [id number].
[2017-09-01 10:12] VITALS: BP 128/63
--- NOTE | 2017-09-01 10:30 | EKG REPORT ---
SEVERITY:- NORMAL ECG - SINUS RHYTHM : Confirmed by: Ford Vines 01-Sep-2017 10:30:15
== END 2017-09-01 10:17 | disposition home or self-care (01) ==
LOC: ER 07:16
DX: R07.89 Other chest pain (principal); Z90.49 Acquired absence of other specified parts of digestive tract
CPT/HCPCS: 93005; 99285; 36415; 82553; 82550; 85025; 80053; 84484; 71045; 93010; A9270

== ENCOUNTER → 2020-02-12 | Outpatient (CLI) | payer MEDICARE, OTHER ==
--- NOTE | 2020-02-12 15:03 | WOMENS IMAGING REPORT ---
EXAM DESCRIPTION: 3D SCREENING MAMMO BILAT IMAGES COMPLETED DATE/TIME: 02/12/2020 1:32 pm REASON FOR STUDY: ROUTINE SCREENGING MAMMOGRAM Z12.31 Z12.31 ENCNTR SCREEN MAMMOGRAM FOR MALIGNANT NEOPLASM OF GALA COMPARISON: Multiple since 2012 EXAM PARAMETERS: Standard craniocaudal and mediolateral oblique views of each breast recorded using digital acquisition and breast tomosynthesis. Read with the assistance of CAD. .[facility] - [employer] Version 9.2 LIMITATIONS: None. FINDINGS: Findings present which are benign by mammographic criteria. No suspicious masses, calcific ations or architectural distortion. Pertinent benign findings: Benign calcifications bilaterally Benign mammographic findings may include one or more of the following: Smooth masses, popcorn/rim/coa rse calcifications, asymmetries, post-procedure changes, and lesions with long-standing stability. IMPRESSION: BENIGN MAMMOGRAPHIC FINDINGS. BIRADS 2 BREAST DENSITY: c. The breasts are heterogeneously dense, which may obscure small masses. BIRAD: ASSESSMENT: 2 BENIGN FINDING(S) RECOMMENDATION: ROUTINE SCREENING Please continue yearly bilateral screening mammography/tomosynthesis in January 2021 COMMENT: The patient has been notified of the results by letter per MQSA requirements. Additional no tification policies are in place for contacting patient with suspicious or incomplete findings. Quality ID #[id number]: The [employer] recommends an annual screening mammogram for women aged 40 years or over. This facility utilizes a reminder system to ensure that all patients receive reminder letters, and/or direct phone calls for appointments. This includes reminders for routine scr eening mammograms, diagnostic mammograms, or other Breast Imaging Interventions when appropriate. Th is patient will be placed in the appropriate reminder system. TECHNICAL DOCUMENTATION: FINDING NUMBER: (1) ASSESSMENT: (1) JOB ID: [id number] 2010 [employer]- All Rights Reserved Reading location - IP/workstation name: [email or web address]
== END ==
LOC: WI 13:46
PROVIDERS: ATTEND Nurse Practitioner
DX: Z12.31 Encounter for screening mammogram for malignant neoplasm of breast (principal)
CPT/HCPCS: 77063; 77067